=== PATIENT | female | born 1945 | race Caucasian/White ===

== ENCOUNTER → 2019-09-29 | Outpatient (CLI) | payer MEDICARE, OTHER | END | disposition home or self-care (01) ==

== ENCOUNTER → 2019-10-10 | Outpatient (CLI) | payer MEDICARE, OTHER ==
--- NOTE | 2019-10-10 11:22 | US ---
EXAMINATION TYPE: US venous doppler duplex LE DATE OF EXAM: 10/10/2019 11:10 AM COMPARISON: NONE CLINICAL HISTORY: R22.41 Swelling rt lower limb,R22.42 Swelling of L. Edema and pain bilateral legs f or 2 days SIDE PERFORMED: bilateral TECHNIQUE: The lower extremity deep venous system is examined utilizing real time linear array sonog mayte with graded compression, doppler sonography and color-flow sonography. VESSELS IMAGED: External Iliac Vein (EIV) Common Femoral Vein Deep Femoral Vein Greater Saphenous Vein * Femoral Vein Popliteal Vein Small Saphenous Vein * Proximal Calf Veins (* superficial vessels) Grayscale, color doppler, spectral doppler imaging performed of the deep veins of the lower extremiti es. There is normal flow, compressibility, vascular waveforms. Right Leg: No evidence of DVT Left Leg: No evidence of DVT IMPRESSION: No sonographic evidence of deep venous thrombosis within either of the visualized bilate ral lower extremities.
== END | disposition home or self-care (01) ==
LOC: RADUSWWP 10:36
PROVIDERS: ATTEND Internal Medicine Hematology & Oncology
DX: R22.43 Localized swelling, mass and lump, lower limb, bilateral (principal); Z88.1 Allergy status to other antibiotic agents; Z91.048 Other nonmedicinal substance allergy status
CPT/HCPCS: 93970

== ENCOUNTER 2021-06-09 17:23 | Inpatient (IN) | payer MEDICARE, OTHER ==
--- NOTE | 2021-06-09 17:46 | ED ---
Lower Extremity Injury HPI - General Chief Complaint: Extremity Injury, Lower Stated Complaint: Fall-R knee pain Time Seen by Provider: 06/09/21 17:40 Source: patient, EMS Mode of arrival: EMS Limitations: no limitations - History of Present Illness Initial Comments: Dinorah is a pleasant 75yo F since the emergency department today via ambulance for evaluation of right leg pain. Patient was standing a glass door when she turned to walk she turned funny falling to the ground hurting her right knee. She has pain in her right knee and newell. No other injuries. Did not strike her head. - Related Data Home Medications Medication Instructions Recorded Confirmed Loratadine-Pseudoeph 10-240 mg 1 tab PO DAILY 01/01/16 06/09/21 [Claritin-D 24 Hour] Acalabrutinib [Calquence] 100 mg PO BID 06/09/21 06/09/21 Eriberto/D3/Mag11/Zinc/Matcher Offbearer/Rigo/Bor 1 tab PO DAILY 06/09/21 06/09/21 [Caltrate 600+D Plus Tablet] Meclizine [Antivert] 25 mg PO DAILY 06/09/21 06/09/21 Meclizine [Antivert] 25 mg PO DAILY PRN 06/09/21 06/09/21 Super Vitamin D 1 tab PO DAILY 06/09/21 06/09/21 Vitamin E (Dl,Tocopheryl Acet) 400 unit PO DAILY 06/09/21 06/09/21 [Vitamin E (400 Iu = 180 mg)] Allergies Allergy/AdvReac Type Severity Reaction Status Date / Time adhesive tape Allergy Rash/Hives Verified 06/09/21 20:08 ointments Allergy Rash/Hives Uncoded 06/09/21 17:34 Review of Systems ROS Statement: Those systems with pertinent positive or pertinent negative responses have been documented in the HPI. ROS Other: All systems not noted in ROS Statement are negative. Past Medical History Past Medical History: Cancer, Osteoarthritis (OA) Additional Past Medical History / Comment(s): meniers, breast cancer, CLL History of Any Multi-Drug Resistant Organisms: None Reported Past Surgical History: Breast Surgery, Hysterectomy, Orthopedic Surgery Additional Past Surgical History / Comment(s): breast biopsy, bladder biopsy, tibia l surgery with devora placement, l great toe tip removed Past Anesthesia/Blood Transfusion Reactions: No Reported Reaction Past Psychological History: Anxiety, Depression Past Alcohol Use History: None Reported, Rare Past Drug Use History: None Reported - Past Family History Mother Family Medical History: Cancer Additional Family Medical History / Comment(s): pancreatic Father Family Medical History: Cancer, Myocardial Infarction ([place]) Additional Family Medical History / Comment(s): stomach Sister(s) Family Medical History: Cancer Additional Family Medical History / Comment(s): colon General Exam - General Exam Comments Initial Comments: Physical Exam GENERAL: Patient is well-developed and well-nourished. Patient is nontoxic and well-hydrated Patient appears uncomfortable HENT: Normocephalic, Atraumatic. EYES: PERRL, EOMI PULMONARY: Unlabored respirations. CARDIOVASCULAR: RRR Warm and well perfused extremities ABDOMEN: Non-distended SKIN: No rashes or bruising : Deferred NEUROLOGIC: Alert and oriented Normal speech MUSCULOSKELETAL: Decreased ROM right knee secondary to pain, effusion, swelling noted PSYCHIATRIC: No SI/HI Limitations: no limitations Course Vital Signs 06/09/21 17:30 Temperature 98.1 F Pulse Rate 65 Respiratory 16 Rate Blood Pressure 117/43 O2 Sat by Pulse 96 Oximetry Medical Decision Making - Medical Decision Making Patient was seen and evaluated, history is obtained from the patient x-rays were obtained x-rays confirm a tibial plateau fracture, computed tomography scan was obtained confirms a tibial plateau fracture non-displaced but slightly depressed these results were discussed with orthopedic surgeon Dr. Ortiz who recommends admission nothing by mouth at midnight. Patient agreeable. Medicine was consulted for medical management. The patient had declined any pain medication s, I advised her she will up when necessary medications needed but she will be nothing by mouth at midnight. Disposition Clinical Impression: Tibial plateau fracture, right Disposition: ADMITTED IP TO THIS HOSP Condition: Stable Is patient prescribed a controlled substance at d/c from ED?: No
--- NOTE | 2021-06-09 18:03 | XR ---
EXAMINATION TYPE: XR knee complete RT, XR tibia fibula RT DATE OF EXAM: 06/09/2021 COMPARISON: NONE HISTORY: 75 years Female. STUDY INDICATION GIVEN: fall . TECHNIQUE: AP, oblique and lateral x-rays of the right knee. AP and lateral x-rays of the right tibia and fibula. IMPRESSION: There are linear lucencies within the proximal tibia which appear to extend to the tibial plateau con cerning for nondisplaced proximal tibial fracture. There is tricompartmental osteoarthrosis and chondrocalcinosis of the knee joint. There is slight irregularity involving the proximal fibula which may be related to remote trauma, no acute fibular fracture appreciated. There is mild soft tissue swelling along the lateral and anterior aspect of the knee and moderate kne e joint effusion. Ossification at the insertion of the quadriceps tendon suggests enthesophyte changes. Slight irregula rity of the distal quadriceps is noted therefore quadriceps tendon injury cannot be entirely excluded . Vascular calcifications are seen posteriorly.
--- NOTE | 2021-06-09 19:58 | CT ---
EXAMINATION TYPE: CT lower extremity RT wo con DATE OF EXAM: 06/09/2021 COMPARISON: Right knee, tibia-fibula radiographs from the same day HISTORY: RT tibial plateau fracture from fall TECHNIQUE: CT scan of the right lower extremity without contrast CT DLP: 118.4 mGycm Automated exposure control for dose reduction was used. FINDINGS: There is diffuse bony demineralization. There is an acute comminuted nondisplaced fracture of the proximal tibia extending into the tibial fe moral joint. Fracture line extends in an oblique fashion from the lateral aspect of the proximal tibi al diaphysis superiorly into the region of the tibial spine. Another fracture line extends in a horiz ontal oblique superior fashion to the middle tibial plateau. There is an apparent slight depression f racture deformity involving the lateral tibial plateau without a fracture line. There are few osseous fragments in the region of the tibial spine which may represent displaced/avulsed osseous fragments. There is lipohemarthrosis which is consistent with above described fracture. There is tricompartmental narrowing of the joint spaces bony spurring. Chondrocalcinosis is also seen with demonstration of calcifications in the region of the menisci. There is also bony spurring at th e proximal tibiofibular joint. Tiny osseous fragments in the posterior knee joint which may represent loose bodies. The femur itself and the patella are acutely intact. The quadriceps tendon and patellar tendons are grossly maintained with demonstration of enthesophyte changes at the insertion of the quadriceps. There are vascular calcifications posterior aspect of the included lower extremity. IMPRESSION: ACUTE COMMINUTED INTRA-ARTICULAR FRACTURES OF THE PROXIMAL TIBIA DESCRIBED IN BODY OF REPORT. LIPOHEMARTHROSIS CONSISTENT WITH DESCRIBED FRACTURE. TRICOMPARTMENTAL OSTEOARTHROSIS.
[2021-06-09] MEDS ORDERED: IBUPROFEN 400 MG TAB PO PRN (20:50)
[2021-06-09] MEDS ORDERED: NALOXONE 0.4 MG/ML 1 ML VIAL IV PRN (20:50)
[2021-06-09 21:59] LABS: Basophils % (A) 0 %; Eosinophils # (A) 0.1 k/uL (0-0.7); Eosinophils % (A) 0 %; HCT 42.2 % (34.0-46.0); Lymphocytes # (A) 1.6 k/uL (1.0-4.8); Lymphocytes % (A) 11 %; MCHC 33.1 g/dL (31.0-37.0); MCV 96.9 fL (80.0-100.0); Mean Platelet Volume 7.2; Monocytes # (A) 0.7 k/uL (0-1.0); Monocytes % (A) 5 %; Neutrophils # (A) 11.8 k/uL (1.3-7.7); Neutrophils % (A) 80 %; Platelet Count 239 k/uL (150-450); RBC 4.36 m/uL (3.80-5.40); RDW 12.2 % (11.5-15.5); WBC 14.7 k/uL (3.8-10.6)
[2021-06-09 22:05] LABS: ALT 15 U/L (4-34); AST 27 U/L (14-36); African American GFR (CKD) >90 (>60 ml/min/1.73 sqM); Albumin 3.7 g/dL (3.5-5.0); Albumin/Globulin Ratio 1.9; Alkaline Phosphatase 57 U/L (38-126); Anion Gap 4 mmol/L; Blood Urea Nitrogen 15 mg/dL (7-17); Calcium 9.5 mg/dL (8.4-10.2); Carbon Dioxide 26 mmol/L (22-30); Chloride 106 mmol/L (98-107); Glucose 107 mg/dL (74-99); Non-African American GFR(CKD) >90 (>60 ml/min/1.73 sqM); Sodium 136 mmol/L (137-145); Total Bilirubin 0.4 mg/dL (0.2-1.3); Total Protein 5.7 g/dL (6.3-8.2)
[2021-06-09 22:11] LABS: Potassium 4.3 mmol/L (3.5-5.1)
[2021-06-09] MEDS: SODIUM CHLORIDE 0.9% 1,000 ML IV SCH ×2 (23:13→23:51)
[2021-06-09] MEDS: HYDROmorphone 0.5 MG/0.5 ML SYRINGE IVP PRN (23:51)
[2021-06-10] MEDS: HYDROmorphone 0.5 MG/0.5 ML SYRINGE IVP PRN ×4 (02:47→19:30)
[2021-06-10] MEDS ORDERED: HYDROcodone/APAP 5-325MG 1 EACH TAB PO PRN (09:23)
[2021-06-10] MEDS ORDERED: Acetaminophen-Codeine 300-30mg TAB PO PRN (09:23)
--- NOTE | 2021-06-10 10:44 | P.HPOR ---
History of Present Illness H&P Date: 06/10/21 Chief Complaint: Right knee pain The patient is a 75-year-old female with a history of breast cancer and CLL who presented to the emergency department yesterday after a fall at home. She states that she twisted her right leg and fell. The patient states that she was trying to prevent injuring her left leg which had surgery 9 years ago at [facility]. She had immediate right knee pain and swelling and presented to the emergency department via EMS. X-rays revealed a minimally displaced tibial plateau fracture and she was admitted to the hospital for pain control and f ther orthopedic evaluation. She states that she does live at home alone and does not use assistive devices at this time. She has used a cane in the past when she's had low back issues but does not use a cane at this time. The patient states that the IV pain medication is helping her pain but does make her very sleepy.she states that she is awaiting [facility] to call her back to schedule a mastectomy Review of Systems Constitutional: Denies chills, Denies fatigue, Denies fever Cardiovascular: Denies chest pain, Denies shortness of breath Respiratory: Denies cough Musculoskeletal: right: knee pain, knee stiffness, knee swelling Past Medical History Past Medical History: Cancer, Osteoarthritis (OA) Additional Past Medical History / Comment(s): meniers, breast cancer, CLL History of Any Multi-Drug Resistant Organisms: None Reported Past Surgical History: Breast Surgery, Hysterectomy, Orthopedic Surgery Additional Past Surgical History / Comment(s): breast biopsy, bladder biopsy, tibia l surgery with devora placement, l great toe tip removed Past Anesthesia/Blood Transfusion Reactions: No Reported Reaction Past Psychological History: Anxiety, Depression Additional Psychological History / Comment(s): takes 1/2 tablet as needed Smoking Status: Former smoker Past Alcohol Use History: None Reported, Rare Past Drug Use History: None Reported - Past Family History Mother Family Medical History: Cancer Additional Family Medical History / Comment(s): pancreatic Father Family Medical History: Cancer, Myocardial Infarction ([place]) Additional Family Medical History / Comment(s): stomach Sister(s) Family Medical History: Cancer Additional Family Medical History / Comment(s): colon Medications and Allergies Home Medications Medication Instructions Recorded Confirmed Type Loratadine-Pseudoeph 10-240 mg 1 tab PO DAILY 01/01/16 06/09/21 History [Claritin-D 24 Hour] Acalabrutinib [Calquence] 100 mg PO BID 06/09/21 06/09/21 History Eriberto/D3/Mag11/Zinc/Solid Waste Manager/Rigo/Bor 1 tab PO DAILY 06/09/21 06/09/21 History [Caltrate 600+D Plus Tablet] Meclizine [Antivert] 25 mg PO DAILY 06/09/21 06/09/21 History Meclizine [Antivert] 25 mg PO DAILY PRN 06/09/21 06/09/21 History Super Vitamin D 1 tab PO DAILY 06/09/21 06/09/21 History Vitamin E (Dl,Tocopheryl Acet) 400 unit PO DAILY 06/09/21 06/09/21 History [Vitamin E (400 Iu = 180 mg)] Allergies Allergy/AdvReac Type Severity Reaction Status Date / Time adhesive tape Allergy Rash/Hives Verified 06/09/21 20:08 ointments Allergy Rash/Hives Uncoded 06/09/21 17:34 Physical Examination The patient is a 75 y/o female in no acute distress. She is alert and oriented x3. the patient's head is normocephalic atraumatic. No pain upon palpation of the cervical spine and no step-offs noted. Bilateral upper extremities are without deformity or pain upon range of motion. Exam of the left lower extremity reveals no obvious deformity or pain. Exam of the right lower extremity reveals a knee immobilizer in place. There is pain upon palpation to the proximal tibia. Calf is soft and nontender. Patient is able to move her toes and foot with minimal pain in the leg. Neurological and circulatory status is intact. Results - Labs Labs: Abnormal Lab Results - Last 24 Hours (Table) 06/09/21 06/09/21 Range/Units 21:45 21:45 WBC 14.7 H (3.8-10.6) k/uL Neutrophils # 11.8 H (1.3-7.7) k/uL Sodium 136 L (137-145) mmol/L Creatinine 0.50 L (0.52-1.04) mg/dL Glucose 107 H (74-99) mg/dL Total Protein 5.7 L (6.3-8.2) g/dL H & H 06/09/21 Range/Units 21:45 Hgb 14.0 (11.4-16.0) gm/dL Hct 42.2 (34.0-46.0) % Result Diagrams: 06/09/21 21:45 06/09/21 21:45 - Diagnostic results Knee CT: image reviewed (CT of the right knee reveals a minimally displaced proximal tibia fracture that extends into the joint. Tricompartmental osteoarthritis noted to the knee. ) Assessment and Plan (1) Right knee pain Current Visit: Yes Status: Acute Code(s): M25.561 - PAIN IN RIGHT KNEE SNOMED Code(s): 6794010301 (2) Tibial plateau fracture, right Current Visit: Yes Status: Acute Code(s): S82.141A - DISPLACED BICONDYLAR FRACTURE OF RIGHT TIBIA, INIT SNOMED Code(s): 734923614 (3) CLL (chronic lymphocytic leukemia) Current Visit: No Status: Acute Code(s): C91.10 - CHRONIC LYMPHOCYTIC LEUK OF B-CELL TYPE NOT ACHIEVE REMIS SNOMED Code(s): 43396350 (4) Breast cancer Current Visit: Yes Status: Acute Code(s): C50.919 - MALIGNANT NEOPLASM OF UNSP SITE OF UNSPECIFIED FEMALE BREAST SNOMED Code(s): 383342455 Plan: The clinical, x-ray, and CT findings were discussed with the patient. The case was discussed at length with Dr. Ortiz. We are recommending non-operative darnell tment to the right proximal tibia fracture. She will be nonweightbearing for 4 weeks with a hinged knee brace, locked at 0-90 degrees. It was discussed in detail that if she does walk on the leg, the fracture will likely move and either the leg would be crooked or would require surgery at that time. She will have close outpatient follow up with us in the office. She will likely need a walker. PT and OT will be ordered for evaluation. The patient would like to go home upon discharge but she may require skilled rehab if she does not do well with PT/OT since she does live alone. A script for the knee brace was placed in the chart and case management consult was ordered to obtain the brace and for discharge planning. We will see how the patient does with PT/OT today. PO pain medication has been ordered. We will transfer attending to internal medicine and will continue to follow the patient closely.
[2021-06-11] MEDS: HYDROmorphone 0.5 MG/0.5 ML SYRINGE IVP PRN ×2 (00:40→05:04)
[2021-06-11] MEDS: SODIUM CHLORIDE 0.9% 1,000 ML IV SCH ×2 (01:59→15:33)
[2021-06-11] MEDS: ACETAMINOPHEN TAB 325 MG TAB PO PRN (05:04)
--- NOTE | 2021-06-11 09:19 | P.PN ---
<ChrislauraNadine Maru - Last Filed: 06/11/21 09:19> Subjective Progress Note Date: 06/11/21 Principal diagnosis: Right tibial plateau fracture The patient is a 75-year-old female with a history of breast cancer and CLL who presented to the emergency department yesterday after a fall at home. She states that she twisted her right leg and fell. The patient states that she was trying to prevent injuring her left leg which had surgery 9 years ago at [facility]. She had immediate right knee pain and swelling and presented to the emergency department via EMS. X-rays revealed a minimally displaced tibial plateau fracture and she was admitted to the hospital for pain control and further orthopedic evaluation. She states that she does live at home alone and does not use assistive devices at this time. She has used a cane in the past when she's had low back issues but does not use a cane at this time. The patient states that the IV pain medication is helping her pain but does make her very sleepy.she states that she is awaiting [facility] to call her back to schedule a mastectomy. 06/11/2021: The patient states the knee is still painful. The knee brace is in place. She is ambulating to the bathroom with a walker and one assist. No new complaints today. Objective - Vital Signs Vital signs: Vital Signs Temp 100.3 F H 06/11/21 04:45 Pulse 81 06/11/21 04:45 Resp 20 06/11/21 04:45 BP 144/61 06/11/21 04:45 Pulse Ox 91 L 06/11/21 04:45 Intake & Output 06/10/21 06/11/21 06/11/21 18:59 06:59 18:59 Intake Total 100 Balance 100 Intake: Oral 100 Other: Voiding Method Bedside Commode Bedside Commode Bedpan # Voids 2 2 - Exam The patient is a 75 y/o female in no acute distress. She is alert and oriented x3. the patient's head is normocephalic atraumatic. No pain upon palpation of the cervical spine and no step-offs noted. Bilateral upper extremities are without deformity or pain upon range of motion. Exam of the left lower extremity reveals no obvious deformity or pain. Exam of the right lower extremity reveals a hinged knee brace in place. There is pain upon palpation to the proximal tibia. Moderate swelling to the knee. Calf is soft and nontender. Patient is able to move her toes and foot with minimal pain in the leg. Neurological and circulatory status is intact. - Labs CBC & Chem 7: 06/09/21 21:45 06/09/21 21:45 Assessment and Plan (1) Right knee pain Current Visit: Yes Status: Acute Code(s): M25.561 - PAIN IN RIGHT KNEE SN OMED Code(s): 0186432832 (2) Tibial plateau fracture, right Current Visit: Yes Status: Acute Code(s): S82.141A - DISPLACED BICONDYLAR FRACTURE OF RIGHT TIBIA, INIT SNOMED Code(s): 961693341 (3) CLL (chronic lymphocytic leukemia) Current Visit: No Status: Acute Code(s): C91.10 - CHRONIC LYMPHOCYTIC LEUK OF B-CELL TYPE NOT ACHIEVE REMIS SNOMED Code(s): 96538280 (4) Breast cancer Current Visit: Yes Status: Acute Code(s): C50.919 - MALIGNANT NEOPLASM OF UNSP SITE OF UNSPECIFIED FEMALE BREAST SNOMED Code(s): 613324781 Plan: The clinical, x-ray, and CT findings were discussed with the patient. The case was discussed at length with Dr. Ortiz. We are recommending non-operative treatme nt to the right proximal tibia fracture. She will be nonweightbearing for 4 weeks with a hinged knee brace, locked at 0-90 degrees. It was discussed in detail that if she does walk on the leg, the fracture will likely move and either the leg would be crooked or would require surgery at that time. She will have close outpatient follow up with us in the office. Continue PT and OT. The patient is planning on skilled rehab now. Continue pain control. We will sign off at this time and she will follow up with Dr. Ortiz in the office in about 2 weeks. <Minnie Ortiz - Last Filed: 06/12/21 07:34> Objective - Vital Signs Vital signs: Vital Signs Temp 99.3 F 06/12/21 05:00 Pulse 74 06/12/21 05:00 Resp 20 06/12/21 05:00 BP 105/52 06/12/21 06:12 Pulse Ox 91 L 06/12/21 05:00 Intake & Output 06/11/21 06/12/21 06/12/21 18:59 06:59 18:59 Intake Total 540 300 Balance 540 300 Intake: Oral 540 300 Other: Voiding Method Bedside Commode Bedpan # Voids 2 2 - Labs CBC & Chem 7: 06/12/21 05:14 06/11/21 11:54 Labs: Abnormal Lab Results - Last 24 Hours (Table) 06/11/21 06/11/21 06/12/21 Range/Units 11:54 11:54 05:14 WBC 10.8 H 11.9 H (3.8-10.6) k/uL RBC 3.78 L (3.80-5.40) m/uL Neutrophils # 8.9 H 10.5 H (1.3-7.7) k/uL Lymphocytes # 0.9 L 0.5 L (1.0-4.8) k/uL Sodium 132 L (137-145) mmol/L Potassium 3.1 L (3.5-5.1) mmol/L Chloride 108 H (98-107) mmol/L Carbon Dioxide 21 L (22-30) mmol/L Creatinine 0.39 L (0.52-1.04) mg/dL Glucose 107 H (74-99) mg/dL Calcium 7.3 L (8.4-10.2) mg/dL Assessment and Plan Plan: Agree with the above plan. The fracture is thankfully nondisplaced and we will attempt closed treatment. She will be nonweightbearing with a hinged knee brace for most likely 6-8 weeks. She will likely need to go to a detention for assistance. We'll see her in the office in two weeks for repeat XR's.
--- NOTE | 2021-06-11 11:30 | P.CONS ---
History of Present Illness - Reason for Consult Consult date: 06/10/21 Medical management - Chief Complaint Fall with right knee pain - History of Present Illness 75yo F since the emergency department today via ambulance for evaluation of right leg pain. Patient was standing a glass door when she turned to walk she turned funny falling to the ground hurting her right knee. She has pain in her right knee and newell. No other injuries. Did not strike her head. Workup in ED; x-rays confirm a tibial plateau fracture, computed tomography scan was obtained confirms a tibial plateau fracture non-displaced but slightly depressed Blood work reveals to PVC 14.7, hemoglobin of 14 and hematocrit 42.2 and platelet count of 239, sodium 136, potassium 4.3, BUN/creatinine of 50/2.5 Patient is admitted for further orthopedic evaluation Review of Systems REVIEW OF SYSTEMS: CONSTITUTIONAL: No fever, no malaise, no fatigue. HEENT: No recent visual problems or hearing problems. Denied any sore throat. CARDIOVASCULAR: No chest pain, orthopnea, PND, no palpitations, no syncope. PULMONARY: No shortness of breath, no cough, no hemoptysis. GASTROINTESTINAL: No diarrhea, no nausea, no vomiting, no abdominal pain. NEUROLOGICAL: No headaches, no weakness, no numbness. HEMATOLOGICAL: Denies any bleeding or petechiae. GENITOURINARY: Denies any burning micturition, frequency, or urgency. MUSCULOSKELETAL/RHEUMATOLOGICAL: Denies any joint pain, swelling, or any muscle pain. ENDOCRINE: Denies any polyuria or polydipsia. The rest of the 14-point review of systems is negative. Past Medical History Past Medical History: Cancer, Osteoarthritis (OA) Additional Past Medical History / Comment(s): meniers, breast cancer, CLL History of Any Multi-Drug Resistant Organisms: None Reported Past Surgical History: Breast Surgery, Hysterectomy, Orthopedic Surgery Additional Past Surgical History / Comment(s): breast biopsy, bladder biopsy, tibia l surgery with devora placement, l great toe tip removed Past Anesthesia/Blood Transfusion Reactions: No Reported Reaction Past Psychological History: Anxiety, Depression Additional Psychological History / Comment(s): takes 1/2 tablet as needed Smoking Status: Former smoker Past Alcohol Use History: None Reported, Rare Past Drug Use History: None Reported - Past Family History Mother Family Medical History: Cancer Additional Family Medical History / Comment(s): pancreatic Father Family Medical History: Cancer, Myocardial Infarction ([place]) Additional Family Medical History / Comment(s): stomach Sister(s) Family Medical History: Cancer Additional Family Medical History / Comment(s): colon Medications and Allergies Home Medications Medication Instructions Recorded Confirmed Type Loratadine-Pseudoeph 10-240 mg 1 tab PO DAILY 01/01/16 06/09/21 History [Claritin-D 24 Hour] Acalabrutinib [Calquence] 100 mg PO BID 06/09/21 06/09/21 History Eriberto/D3/Mag11/Zinc/[employer]/Rigo/Bor 1 tab PO DAILY 06/09/21 06/09/21 History [Caltrate 600+D Plus Tablet] Meclizine [Antivert] 25 mg PO DAILY 06/09/21 06/09/21 History Meclizine [Antivert] 25 mg PO DAILY PRN 06/09/21 06/09/21 History Super Vitamin D 1 tab PO DAILY 06/09/21 06/09/21 History Vitamin E (Dl,Tocopheryl Acet) 400 unit PO DAILY 06/09/21 06/09/21 History [Vitamin E (400 Iu = 180 mg)] HYDROcodone/APAP 5-325MG [[place] 5] 1 each PO Q4-6H PRN #30 tab 06/11/21 Rx Allergies Allergy/AdvReac Type Severity Reaction Status Date / Time adhesive tape Allergy Rash/Hives Verified 06/09/21 20:08 ointments Allergy Rash/Hives Uncoded 06/09/21 17:34 Physical Exam Vitals: Vital Signs Temp Pulse Pulse Resp BP BP Pulse Ox 06/10/21 02:00 98.9 F 66 16 122/56 90 L 06/09/21 23:40 98.7 F 66 16 167/61 96 06/09/21 23:10 73 18 140/63 95 06/09/21 17:30 98.1 F 65 16 117/43 96 Intake and Output 06/09/21 06/10/21 06/10/21 22:59 06:59 14:59 Other: # Voids 2 Weight 53.977 kg PHYSICAL EXAMINATION: GENERAL: The patient is alert and oriented x3, not in any acute distress. Well developed, well nourished. HEENT: Pupils are round and equally reacting to light. EOMI. No scleral icterus. No conjunctival pallor. Normocephalic, atraumatic. No pharyngeal erythema. No thyromegaly. CARDIOVASCULAR: S1 and S2 present. No murmurs, rubs, or gallops. PULMONARY: Chest is clear to auscultation, no wheezing or crackles. ABDOMEN: Soft, nontender, nondistended, normoactive bowel sounds. No palpable organomegaly. MUSCULOSKELETAL: No joint swelling or deformity. EXTREMITIES: No cyanosis, clubbing, or pedal edema. NEUROLOGICAL: Gross neurological examination did not reveal any focal deficits. SKIN: No rashes. Results CBC & Chem 7: 06/09/21 21:45 06/09/21 21:45 Labs: Abnormal Lab Results - Last 24 Hours (Table) 06/09/21 06/09/21 Range/Units 21:45 21:45 WBC 14.7 H (3.8-10.6) k/uL Neutrophils # 11.8 H (1.3-7.7) k/uL Sodium 136 L (137-145) mmol/L Creatinine 0.50 L (0.52-1.04) mg/dL Glucose 107 H (74-99) mg/dL Total Protein 5.7 L (6.3-8.2) g/dL Assessment and Plan Assessment: 1. Fall with right knee pain; tibial plateau fracture - Patient has been evaluated by orthopedic surgery and recommending operative treatment to the right proximal tibial fracture; patient will be nonweightbearing for 4 weeks with a hinged knee brace with close outpatient monitoring - PT/OT evaluation as recommended and pending 2. Osteoarthritis; patient is currently on [place] and Dilaudid 3. Chronic lymphocytic leukemia 4. Breast cancer; patient awaits callback from [facility] as scheduled for mastectomy DVT prophylaxis; SCDs CODE STATUS; full code
[2021-06-11] MEDS ORDERED: MECLIZINE 25 MG TAB PO PRN (11:31)
[2021-06-11 12:15] LABS: Basophils % (A) 0 %; Eosinophils # (A) 0.2 k/uL (0-0.7); Eosinophils % (A) 1 %; HCT 36.1 % (34.0-46.0); HGB 12.3 gm/dL (11.4-16.0); Lymphocytes # (A) 0.9 k/uL (1.0-4.8); Lymphocytes % (A) 8 %; MCH 32.5 pg (25.0-35.0); MCHC 34.1 g/dL (31.0-37.0); MCV 95.4 fL (80.0-100.0); Mean Platelet Volume 7.7; Monocytes # (A) 0.7 k/uL (0-1.0); Monocytes % (A) 6 %; Neutrophils # (A) 8.9 k/uL (1.3-7.7); Neutrophils % (A) 83 %; Platelet Count 172 k/uL (150-450); RBC 3.78 m/uL (3.80-5.40); RDW 12.2 % (11.5-15.5); WBC 10.8 k/uL (3.8-10.6)
[2021-06-11 12:24] LABS: African American GFR (CKD) >90 (>60 ml/min/1.73 sqM); Anion Gap 3 mmol/L; Blood Urea Nitrogen 10 mg/dL (7-17); Calcium 7.3 mg/dL (8.4-10.2); Carbon Dioxide 21 mmol/L (22-30); Chloride 108 mmol/L (98-107); Glucose 107 mg/dL (74-99); Non-African American GFR(CKD) >90 (>60 ml/min/1.73 sqM); Potassium 3.1 mmol/L (3.5-5.1); Sodium 132 mmol/L (137-145)
[2021-06-11] MEDS: traMADol 50 MG TAB PO SCH ×2 (15:33→21:33)
[2021-06-11] MEDS: diphenhydrAMINE 50 MG/ML 1 ML VIAL IVP PRN ×2 (15:34→21:33)
[2021-06-11] MEDS: ACALABRUTINIB 100 MG PO SCH (21:53)
[2021-06-12] MEDS: SODIUM CHLORIDE 0.9% 1,000 ML IV SCH ×3 (04:30→21:05)
[2021-06-12 05:49] LABS: Basophils % (A) 0 %; Eosinophils # (A) 0.3 k/uL (0-0.7); Eosinophils % (A) 3 %; HCT 39.3 % (34.0-46.0); HGB 13.4 gm/dL (11.4-16.0); Lymphocytes # (A) 0.5 k/uL (1.0-4.8); Lymphocytes % (A) 4 %; MCH 32.6 pg (25.0-35.0); MCV 95.7 fL (80.0-100.0); Mean Platelet Volume 7.7; Monocytes # (A) 0.5 k/uL (0-1.0); Monocytes % (A) 4 %; Neutrophils # (A) 10.5 k/uL (1.3-7.7); Neutrophils % (A) 88 %; Platelet Count 202 k/uL (150-450); RBC 4.11 m/uL (3.80-5.40); RDW 12.2 % (11.5-15.5); WBC 11.9 k/uL (3.8-10.6)
[2021-06-12] MEDS: traMADol 50 MG TAB PO SCH ×3 (09:46→20:17)
[2021-06-12] MEDS: MECLIZINE 25 MG TAB PO SCH (09:47)
[2021-06-12] MEDS: VITAMIN E (DL,TOCOPHERYL ACET) 400 UNIT (180 MG) CAP PO SCH (09:48)
[2021-06-12] MEDS: LORATADINE-PSEUDOEPH 5-120 MG 1 EACH TAB.ER.12H PO SCH ×2 (09:48→21:04)
[2021-06-12] MEDS: ACALABRUTINIB 100 MG PO SCH ×2 (09:49→20:18)
[2021-06-12] MEDS: diphenhydrAMINE 50 MG/ML 1 ML VIAL IVP PRN (09:52)
[2021-06-12] MEDS: ACETAMINOPHEN TAB 325 MG TAB PO PRN (09:52)
[2021-06-12 10:35] LABS: African American GFR (CKD) 103.1 (60.0-200.0); Anion Gap 11.5 mmol/L (10.00-18.00); BUN/Creat Ratio 17.34 Ratio (12.00-20.00); Blood Urea Nitrogen 10.7 mg/dL (9.0-27.0); Calcium 8.2 mg/dL (8.7-10.3); Carbon Dioxide 21.1 mmol/L (20.0-27.5); Potassium 3.6 mmol/L (3.5-5.5)
--- NOTE | 2021-06-12 20:14 | P.PN ---
Subjective Progress Note Date: 06/11/21 Principal diagnosis: Tibial plateau fracture 75yo F since the emergency department today via ambulance for evaluation of right leg pain. Patient was standing a glass door when she turned to walk she turned funny falling to the ground hurting her right knee. She has pain in her right knee and newell. No other injuries. Did not strike her head. Workup in ED; x-rays confirm a tibial plateau fracture, computed tomography scan was obtained confirms a tibial plateau fracture non-displaced but slightly depressed Blood work reveals to PVC 14.7, hemoglobin of 14 and hematocrit 42.2 and platelet count of 239, sodium 136, potassium 4.3, BUN/creatinine of 50/2.5 Patient is admitted for further orthopedic evaluation Objective - Vital Signs Vital signs: Vital Signs Temp 99.3 F 06/11/21 07:45 Pulse 81 06/11/21 04:45 Resp 20 06/11/21 04:45 BP 144/61 06/11/21 04:45 Pulse Ox 91 L 06/11/21 04:45 Intake & Output 06/10/21 06/11/21 06/11/21 18:59 06:59 18:59 Intake Total 100 Balance 100 Intake: Oral 100 Other: Voiding Method Bedside Commode Bedside Commode Bedpan # Voids 2 2 - Exam GENERAL: The patient is alert and oriented x3, not in any acute distress. Well developed, well nourished. HEENT: Pupils are round and equally reacting to light. EOMI. No scleral icterus. No conjunctival pallor. Normocephalic, atraumatic. No pharyngeal erythema. No thyromegaly. CARDIOVASCULAR: S1 and S2 present. No murmurs, rubs, or gallops. PULMONARY: Chest is clear to auscultation, no wheezing or crackles. ABDOMEN: Soft, nontender, nondistended, normoactive bowel sounds. No palpable organomegaly. MUSCULOSKELETAL: No joint swelling or deformity. EXTREMITIES: No cyanosis, clubbing, or pedal edema. NEUROLOGICAL: Gross neurological examination did not reveal any focal deficits. SKIN: No rashes. - Labs CBC & Chem 7: 06/12/21 05:14 06/12/21 05:14 Assessment and Plan Assessment: 1. Fall with right knee pain; tibial plateau fracture - Patient has been evaluated by orthopedic surgery and recommending operative treatment to the right proximal tibial fracture; patient will be nonweightbearing for 4 weeks with a hinged knee brace with close outpatient monitoring - PT/OT evaluation as recommended and pending 2. Osteoarthritis; patient is currently on [place] and Dilaudid 3. Chronic lymphocytic leukemia 4. Breast cancer; patient awaits callback from [facility] as scheduled for mastectomy DVT prophylaxis; SCDs CODE STATUS; full code
--- NOTE | 2021-06-12 20:16 | P.PN ---
Subjective Progress Note Date: 06/12/21 Principal diagnosis: Tibial plateau fracture 75yo F since the emergency department today via ambulance for evaluation of right leg pain. Patient was standing a glass door when she turned to walk she turned funny falling to the ground hurting her right knee. She has pain in her right knee and newell. No other injuries. Did not strike her head. Workup in ED; x-rays confirm a tibial plateau fracture, computed tomography scan was obtained confirms a tibial plateau fracture non-displaced but slightly depressed Blood work reveals to 14.7, hemoglobin of 14 and hematocrit 42.2 and platelet count of 239, sodium 136, potassium 4.3, BUN/creatinine of 50/2.5 Patient is admitted for further orthopedic evaluation 06/12/2021 Patient is seen and evaluated sitting up in bedside chair; denies any specific complaints Vital signs are reviewed and stable with temperature 99.3, pulse 74, respiration 20 and blood pressure of 105/52 Labs are reviewed 39.3 and platelet count of 202, sodium 136, potassium 76, BUN of 10.7 with creatinine of 0.6 Patient does have knee brace in place; orthopedic surgery has signed off; patient has been evaluated by PT and is recommended skilled rehab Objective - Vital Signs Vital signs: Vital Signs Temp 98.4 F 06/12/21 11:52 Pulse 70 06/12/21 11:52 Resp 16 06/12/21 11:52 BP 106/44 06/12/21 11:52 Pulse Ox 92 L 06/12/21 11:52 Intake & Output 06/11/21 06/12/21 06/12/21 18:59 06:59 18:59 Intake Total 540 300 Balance 540 300 Intake: Oral 540 300 Other: Voiding Method Bedside Commode Bedside Commode Bedpan Bedpan # Voids 2 2 - Exam GENERAL: The patient is alert and oriented x3, not in any acute distress. Well developed, well nourished. HEENT: Pupils are round and equally reacting to light. EOMI. No scleral icterus. No conjunctival pallor. Normocephalic, atraumatic. No pharyngeal erythema. No thyromegaly. CARDIOVASCULAR: S1 and S2 present. No murmurs, rubs, or gallops. PULMONARY: Chest is clear to auscultation, no wheezing or crackles. ABDOMEN: Soft, nontender, nondistended, normoactive bowel sounds. No palpable organomegaly. MUSCULOSKELETAL: No joint swelling or deformity. EXTREMITIES: No cyanosis, clubbing, or pedal edema. NEUROLOGICAL: Gross neurological examination did not reveal any focal deficits. SKIN: No rashes. - Labs CBC & Chem 7: 06/12/21 05:14 06/12/21 05:14 Labs: Abnormal Lab Results - Last 24 Hours (Table) 06/12/21 06/12/21 Range/Units 05:14 05:14 WBC 11.9 H (3.8-10.6) k/uL Neutrophils # 10.5 H (1.3-7.7) k/uL Lymphocytes # 0.5 L (1.0-4.8) k/uL Glucose 164 H (70-110) mg/dL Calcium 8.2 L (8.7-10.3) mg/dL Assessment and Plan Assessment: 1. Fall with right knee pain; tibial plateau fracture - Patient has been evaluated by orthopedic surgery and recommending operative treatment to the right proximal tibial fracture; patient will be nonweightbearing for 4 weeks with a hinged knee brace with close outpatient monitoring - PT/OT evaluation as recommended and pending 2. Osteoarthritis; patient is currently on [place] and Dilaudid 3. Chronic lymphocytic leukemia 4. Breast cancer; patient awaits callback from [facility] as scheduled for mastectomy DVT prophylaxis; SCDs CODE STATUS; full code
[2021-06-13] MEDS: ACALABRUTINIB 100 MG PO SCH ×2 (08:06→20:49)
[2021-06-13] MEDS: MECLIZINE 25 MG TAB PO SCH (09:12)
[2021-06-13] MEDS: VITAMIN E (DL,TOCOPHERYL ACET) 400 UNIT (180 MG) CAP PO SCH (09:12)
[2021-06-13] MEDS: LORATADINE-PSEUDOEPH 5-120 MG 1 EACH TAB.ER.12H PO SCH ×2 (09:13→20:54)
[2021-06-13] MEDS: traMADol 50 MG TAB PO SCH ×3 (09:13→20:49)
[2021-06-13] MEDS ORDERED: methylPREDNISolone SOD SUCCI 125 MG/2 ML VIAL IV STA (13:09)
[2021-06-13] MEDS: methylPREDNISolone SOD SUCCI 125 MG/2 ML VIAL IV SCH (16:59)
[2021-06-13] MEDS: SODIUM CHLORIDE 0.9% 1,000 ML IV SCH (19:53)
[2021-06-14] MEDS: methylPREDNISolone SOD SUCCI 125 MG/2 ML VIAL IV SCH ×4 (00:22→17:27)
--- NOTE | 2021-06-14 00:41 | P.PN ---
Subjective Progress Note Date: 06/13/21 Tibial plateau fracture 75yo F since the emergency department today via ambulance for evaluation of righ t leg pain. Patient was standing a glass door when she turned to walk she turned funny falling to the ground hurting her right knee. She has pain in her right knee and newell. No other injuries. Did not strike her head. Workup in ED; x-rays confirm a tibial plateau fracture, computed tomography scan was obtained confirms a tibial plateau fracture non-displaced but slightly depressed Blood work reveals to 14.7, hemoglobin of 14 and hematocrit 42.2 and platelet count of 239, sodium 136, potassium 4.3, BUN/creatinine of 50/2.5 Patient is admitted for further orthopedic evaluation 06/12/2021 Patient is seen and evaluated sitting up in bedside chair; denies any specific complaints Vital signs are reviewed and stable with temperature 99.3, pulse 74, respiration 20 and blood pressure of 105/52 Labs are reviewed 39.3 and platelet count of 202, sodium 136, potassium 76, BUN of 10.7 with creatinine of 0.6 Patient does have knee brace in place; orthopedic surgery has signed off; patient has been evaluated by PT and is recommended skilled rehab 06/13/2021 Patient is seen in follow up today and was seen and evaluated by orthopedics and brace is noted on lower extremity. No surgical intervention planned for tibial plateau fracture. Patient is scheduled to go to [facility] for rehab and awaiting acceptance from facility. Patient is having extreme amount of itching with redness and hives noted all over upper and lower extremities as well as all over the back. Appears to be an allergic reaction. Patient did receive one dose of IV dilaudid and rash started shortly after. Patient has been refusing benadryl stating it doesn't help. Will consult ID for further recommendations and input. Review of systems: Constitutional: no reports of fatigue, no reports of fever, or chills, mildly anxious Cardiovascular: No reports of chest pain or palpitations Respiratory: No reports of shortness of breath : No reports of dysuria or retention Neurovascular: Reports generalized weakness SKin: reports generalized rash all over body and extreme itchiness. Active Medications Acetaminophen (Acetaminophen Tab 325 Mg Tab) 650 mg PO Q6HR PRN PRN Reason: Mild Pain or Fever > 100.5 Last Admin: 06/12/21 09:52 Dose: 650 mg Documented by: Acetaminophen/Codeine Phosphate (Acetaminophen-Codeine 300-30mg Tab) 1 each PO Q4HR PRN PRN Reason: Pain Scale 1 to 5 Diphenhydramine HCl (Diphenhydramine 50 Mg/Ml 1 Ml Vial) 25 mg IVP Q6HR PRN PRN Reason: Allergy Symptoms Last Admin: 06/12/21 09:52 Dose: 25 mg Documented by: Sodium Chloride (Saline 0.9%) 1,000 mls @ 75 mls/hr IV .[id number] [facility] Last Admin: 06/13/21 19:53 Dose: Not Given Documented by: Ibuprofen (Ibuprofen 400 Mg Tab) 400 mg PO Q6HR PRN PRN Reason: Mild Pain or Fever > 100.5 Loratadine/Pseudoephedrine Sulfate (Loratadine-Pseudoeph 5-120 Mg 1 Each Tab.Er.12h) 1 each PO BID [facility] Last Admin: 06/13/21 20:54 Dose: 1 each Documented by: Meclizine HCl (Meclizine 25 Mg Tab) 25 mg PO DAILY PRN PRN Reason: Vertigo Meclizine HCl (Meclizine 25 Mg Tab) 25 mg PO DAILY [facility] Last Admin: 06/13/21 09:12 Dose: 25 mg Documented by: Methylprednisolone Sodium Succinate (Methylprednisolone Sod Succi 125 Mg/2 Ml Vial) 60 mg IV Q6HR [facility] Last Admin: 06/13/21 16:59 Dose: Not Given Documented by: Naloxone HCl (Naloxone 0.4 Mg/Ml 1 Ml Vial) 0.2 mg IV Q2M PRN PRN Reason: Opioid Reversal Non-Formulary Medication (Acalabrutinib [Calquence]) 100 mg PO BID [facility] Last Admin: 06/13/21 20:49 Dose: Not Given Documented by: Tramadol HCl (Tramadol 50 Mg Tab) 50 mg PO TID [facility] Last Admin: 06/13/21 20:49 Dose: Not Given Documented by: Vitamin E (Vitamin E (Dl,Tocopheryl Acet) 400 Unit (180 Mg) Cap) 400 unit PO DAILY [facility] Last Admin: 06/13/21 09:12 Dose: 400 unit Documented by: Physical exam: GENERAL: The patient is alert and oriented x3, slightly anxious, itching all over. Well developed, well nourished. HEENT: Pupils are round and equally reacting to light. EOMI. No scleral icterus. No conjunctival pallor. Normocephalic, atraumatic. No pharyngeal erythema. No thyromegaly. CARDIOVASCULAR: S1 and S2 present. No murmurs, rubs, or gallops. PULMONARY: Chest is clear to auscultation, no wheezing or crackles. ABDOMEN: Soft, nontender, nondistended, normoactive bowel sounds. No palpable organomegaly. MUSCULOSKELETAL: No joint swelling or deformity. EXTREMITIES: No cyanosis, clubbing, or pedal edema. right leg in splint NEUROLOGICAL: Gross neurological examination did not reveal any focal deficits. diffusely weak SKIN: redness with hives and splotches noted on back, buttock, upper and lower extremities Assessment: -Fall with right knee pain; tibial plateau fracture, Patient has been evaluated by orthopedic surgery and recommending operative treatment to the right proximal tibial fracture; patient will be nonweightbearing for 4 weeks with a hinged knee brace with close outpatient monitoring -possible allergic reaction to medications possible Dilaudid. Received one dose on admission and developed a rash which appears to be worsening and consulted ID and appreciate recommendations. Starting IV steroids. -Osteoarthritis -Chronic lymphocytic leukemia -Breast cancer; patient awaits callback from [facility] as scheduled for mastectomy -DVT prophylaxis; SCDs -CODE STATUS; full code Plan: Recommend to continue with current medications and avoid dilaudid as patient received a dose in the ED and shortly after has developed this generalized hive with erythema and welting noted. Patient is extremely itchy and has been refusing benadryl and and ID following. Patient is to continue with non- weightbearing and hinged knee brace to the right lower extremity and orthopedic follow up in four weeks. Patient is weak and PT recommends rehab and will be going to [facility]CF once accepting facility is obtained. Patient being given IV steroids and will monitor overnight for improvement in rash. Possible discharge in 24 hours. Objective - Vital Signs Vital signs: Vital Signs Temp 98.4 F 06/13/21 21:00 Pulse 86 06/13/21 21:00 Resp 18 06/13/21 21:00 BP 144/52 06/13/21 21:00 Pulse Ox 93 L 06/13/21 21:00 Intake & Output 06/13/21 06/13/21 06/14/21 06:59 18:59 06:59 Intake Total 500 Balance 500 Intake: Oral 500 Other: Voiding Method Bedside Commode Bedside Commode Bedpan # Voids 3 3 - Labs CBC & Chem 7: 06/12/21 05:14 06/12/21 05:14
[2021-06-14 05:07] VITALS: RESP 16
[2021-06-14] MEDS: VITAMIN E (DL,TOCOPHERYL ACET) 400 UNIT (180 MG) CAP PO SCH (08:32)
[2021-06-14] MEDS: MECLIZINE 25 MG TAB PO SCH (08:32)
[2021-06-14] MEDS: LORATADINE-PSEUDOEPH 5-120 MG 1 EACH TAB.ER.12H PO SCH ×2 (08:32→20:44)
[2021-06-14] MEDS: traMADol 50 MG TAB PO SCH (08:33)
[2021-06-14] MEDS: ACALABRUTINIB 100 MG PO SCH ×2 (08:33→20:59)
--- NOTE | 2021-06-14 08:43 | P.CONS ---
History of Present Illness - Reason for Consult Consult date: 06/13/21 rash Requesting physician: Lanette Thornton - Chief Complaint rash x 1 day - History of Present Illness History of present illness : Patient is a 75-year female presenting to the ER on 06/09/2021 for evaluation of right leg pain patient did have a fall hurting her right knee patient on presentation to the hospital was afebrile did have low-grade fever 100.3 on 06/11/2021 no fever since then patient did have vital a 14.7 visit on .9 creatinine was normal wyman PCR was negative patient did have a x-ray of the knee mild soft tissues swelling and some irregular involving the proximal fibula patient did have a CT of the lower extremity acute community created intra-articular fracture of the proximal tibia patient has been admitted to the orthopedic service is with the plan for close treatment with a hinged knee brace patient also receiving pain medication in the form of Dilaudid and Brave patient has developed a burning rash mostly more to the back and to the leg area that has prompted this infectious disease consultation patient currently do not have any sores in the mouth denies having any wheezing or difficulty breathing pain to the knee he is mostly dull aching 4 to 5-10 and is currently controlled with the current pain medication Review of system: CONSTITUTIONAL: Positive for weakness denies high-grade fever. EYES: No complaint. ENT: No complaint. RESPIRATORY: No complaint. CARDIOVASCULAR: No complaint. GENITOURINARY: No complaint. GASTROINTESTINAL: No complaint. MUSCULOSKELETAL: As per history of present illness. INTEGUMENTARY: As per history of present illness. PSYCHOLOGIC: No complaint. ENDOCRINE: No complaint. NEUROLOGIC: No complaint. Past medical history : Reviewed, documented below Past surgical history : Reviewed, documented below Social history: Reviewed, documented below Medications: Reviewed, as documented below EXAMINATION: Vital sigans= Reviewed and documented below GENERAL DESCRIPTION: Elderly female up in the chair, no distress. No tachypnea or accessory muscle of respiration use. HEENT: Shows Pallor , no scleral icterus. Oral mucous membrane is dry. NECK: Trachea central, no thyromegaly. LUNGS: Unlabored breathing. Clear to auscultation anteriorly. No wheeze or crackle. HEART: S1, S2, regular rate and rhythm. ABDOMEN: Soft, no tenderness , guarding or rigidity EXTREMITIES: No edema of feet. SKIN: Diffuse maculopapular rash especially more with the back lower extremity no blister. NEUROLOGICAL: The patient is awake, alert, oriented x3, mood and affect normal. LABS AND RADIOLOGY: Reviewed results see below Assessment : Patient with diffuse erythematous rash especially involving the back lower extremity is more likely a drug rash and the findings are could be Dilaudid or Brave clinically doubt infectious etiology Plan: 1-recommend discontinue Dilaudid and Brave 2-we will give her Solu-Medrol in view of the extensive rash 3-no need for systemic antibiotic therapy We will follow on clinical condition and cultures to further adjust medication if needed Thank you for this consultation we will follow the patient along with you Past Medical History Past Medical History: Cancer, Osteoarthritis (OA) Additional Past Medical History / Comment(s): meniers, breast cancer, CLL History of Any Multi-Drug Resistant Organisms: None Reported Past Surgical History: Breast Surgery, Hysterectomy, Orthopedic Surgery Additional Past Surgical History / Comment(s): breast biopsy, bladder biopsy, tibia l surgery with devora placement, l great toe tip removed Past Anesthesia/Blood Transfusion Reactions: No Reported Reaction Past Psychological History: Anxiety, Depression Additional Psychological History / Comment(s): takes 1/2 tablet as needed Smoking Status: Former smoker Past Alcohol Use History: None Reported, Rare Past Drug Use History: None Reported - Past Family History Mother Family Medical History: Cancer Additional Family Medical History / Comment(s): pancreatic Father Family Medical History: Cancer, Myocardial Infarction ([place]) Additional Family Medical History / Comment(s): stomach Sister(s) Family Medical History: Cancer Additional Family Medical History / Comment(s): colon Medications and Allergies Home Medications Medication Instructions Recorded Confirmed Type Loratadine-Pseudoeph 10-240 mg 1 tab PO DAILY 01/01/16 06/09/21 History [Claritin-D 24 Hour] Acalabrutinib [Calquence] 100 mg PO BID 06/09/21 06/09/21 History Eriberto/D3/Mag11/Zinc/[employer]/[place]igo/Bor 1 tab PO DAILY 06/09/21 06/09/21 History [Caltrate 600+D Plus Tablet] Meclizine [Antivert] 25 mg PO DAILY 06/09/21 06/09/21 History Meclizine [Antivert] 25 mg PO DAILY PRN 06/09/21 06/09/21 History Super Vitamin D 1 tab PO DAILY 06/09/21 06/09/21 History Vitamin E (Dl,Tocopheryl Acet) 400 unit PO DAILY 06/09/21 06/09/21 History [Vitamin E (400 Iu = 180 mg)] HYDROcodone/APAP 5-325MG [Brave 5] 1 each PO Q4-6H PRN #30 tab 06/11/21 Rx Allergies Allergy/AdvReac Type Severity Reaction Status Date / Time adhesive tape Allergy Rash/Hives Verified 06/09/21 20:08 ointments Allergy Rash/Hives Uncoded 06/09/21 17:34 Physical Exam Vitals: Vital Signs Temp Pulse Resp BP Pulse Ox 06/13/21 04:19 98.1 F 71 20 111/52 94 L 06/12/21 21:00 99.1 F 79 18 134/61 92 L Intake and Output 06/12/21 06/13/21 06/13/21 22:59 06:59 14:59 Intake Total 600 Balance 600 Intake: Intake, IV Titration 600 Amount Sodium Chloride 0.9% 1, 600 000 ml @ 75 mls/hr IV . [id number] [facility] Rx#:[id number] Other: Voiding Method Bedside Commode Bedpan # Voids 3 Results CBC & Chem 7: 06/12/21 05:14 06/12/21 05:14
[2021-06-14] MEDS ORDERED: CALAMINE/ZINC OXIDE LOTION 177 ML BTL TOPICAL PRN (10:56)
[2021-06-14] MEDS: diphenhydrAMINE 50 MG/ML 1 ML VIAL IVP PRN (11:30)
[2021-06-14] MEDS: SODIUM CHLORIDE 0.9% 1,000 ML IV SCH ×2 (15:21→20:45)
[2021-06-14] MEDS: SALT AND SODA MOUTHWASH 1,000 ML PO SCH ×2 (17:27→20:45)
--- NOTE | 2021-06-14 18:32 | P.CONS ---
History of Present Illness - Reason for Consult Consult date: 06/14/21 medication reaction, patient is on a PTK inhibitor for CLL Requesting physician: Lanette Thornton - Chief Complaint fall with tibial fracture - History of Present Illness Ms. Rivera is a very pleasant 75-year-old female patient of Dr. Moe who was admitted about 5 days ago after an accidental fall in which she fractured her tibia. When she was admitted to the hospital, within 12 hours of admit she broke out in a very severe rash, more concentrated on the abdomen, fades as it goes distally, also noted only in certain areas of clothing (i.e. she has a triangular patch on her back with no rash, the rash goes over her shoulders almost like "straps"). The rash is puritic, it isn't getting worse but, it is not getting better. As of note patient took her acalabrutinib prior to admission, did not take until yesterday when it was brought to her from home. She has been on acalabrutinib since at least August 2020, she has had no significant side effects, it has managed her CLL very well. Her tibia fracture is being managed medically, no plans for surgical intervention right now. Malignancy history is as follows:. Patient was initially seen in consult at [facility] 01/01/16. Admitted with progressive weakness, shortness of breath. Hemoglobin 5-6 range, WBC 200+, platelet 40-50,000. 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 She received bendamustine and Rituxan, 6 cycles. She did very well after this treatment until about August 2019. She was experiencing constitutional symptoms, she had significant lymphocytosis, worsening anemia and thrombocytopenia. She was started on imbruvica. She had a good response to treatment, resolution of her constitutional symptoms and improvement in her blood counts. She had a dose reduction in August 2020 because of side effects. Ultimately, she was switched to acalabrutinib September 2020 because of fatigue and joint pains from the imbruvica. 04/01/2021 pt noticed erythema and nodules in center of left breast implant over the previous few weeks. She has a history of left breast cancer in 1987, treated with bilateral mastectomies, no radiation, adjuvant chemotherapy and tamoxifen. She was referred to Dr Ochoa, punch biopsy on 04/06/2021 was positive for grade 1, invasive ductal carcinoma, ER/IN+ (90%/31%), HER2/ABELARDO negative. She met with Dr. Alcantara at [place] in regard to local recurrence of her breast cancer, she had MRI of breasts and plans for surgery soon. Review of Systems 10 point ROS is neg except as stated in HPI Past Medical History Past Medical History: Cancer, Osteoarthritis (OA) Additional Past Medical History / Comment(s): meniers, breast cancer, CLL History of Any Multi-Drug Resistant Organisms: None Reported Past Surgical History: Breast Surgery, Hysterectomy, Orthopedic Surgery Additional Past Surgical History / Comment(s): breast biopsy, bladder biopsy, tibia l surgery with devora placement, l great toe tip removed Past Anesthesia/Blood Transfusion Reactions: No Reported Reaction Past Psychological History: Anxiety, Depression Additional Psychological History / Comment(s): takes 1/2 tablet as needed Smoking Status: Former smoker Past Alcohol Use History: None Reported, Rare Past Drug Use History: None Reported - Past Family History Mother Family Medical History: Cancer Additional Family Medical History / Comment(s): pancreatic Father Family Medical History: Cancer, Myocardial Infarction ([place]) Additional Family Medical History / Comment(s): stomach Sister(s) Family Medical History: Cancer Additional Family Medical History / Comment(s): colon Medications and Allergies Home Medications Medication Instructions Recorded Confirmed Type Loratadine-Pseudoeph 10-240 mg 1 tab PO DAILY 01/01/16 06/09/21 History [Claritin-D 24 Hour] Acalabrutinib [Calquence] 100 mg PO BID 06/09/21 06/09/21 History Eriberto/D3/Mag11/Zinc/Image Processing Engineer/Rigo/Bor 1 tab PO DAILY 06/09/21 06/09/21 History [Caltrate 600+D Plus Tablet] Meclizine [Antivert] 25 mg PO DAILY 06/09/21 06/09/21 History Meclizine [Antivert] 25 mg PO DAILY PRN 06/09/21 06/09/21 History Super Vitamin D 1 tab PO DAILY 06/09/21 06/09/21 History Vitamin E (Dl,Tocopheryl Acet) 400 unit PO DAILY 06/09/21 06/09/21 History [Vitamin E (400 Iu = 180 mg)] Allergies Allergy/AdvReac Type Severity Reaction Status Date / Time adhesive tape Allergy Rash/Hives Verified 06/09/21 20:08 ointments Allergy Rash/Hives Uncoded 06/09/21 17:34 Physical Exam Vitals: Vital Signs Temp Pulse Resp BP Pulse Ox 06/14/21 05:00 98.2 F 76 16 141/55 91 L 06/13/21 21:00 98.4 F 86 18 144/52 93 L 06/13/21 19:58 86 18 06/13/21 13:15 98.4 F 74 16 112/57 96 Intake and Output 06/13/21 06/14/21 06/14/21 22:59 06:59 14:59 Intake Total 500 Balance 500 Intake: Oral 500 Other: Voiding Method Bedside Commode # Voids 3 3 1 # Bowel Movements 1 - Constitutional General appearance: average body habitus, cooperative, no acute distress - EENT scant thrush in bilateral buccal areas Eyes: anicteric sclerae, EOMI ENT: hearing grossly normal - Neck Neck: no lymphadenopathy - Respiratory Respiratory: bilateral: CTA - Cardiovascular Rhythm: regular Heart sounds: normal: S1, S2 Abnormal Heart Sounds: no systolic murmur, no diastolic murmur, no rub, no S3 Gallop, no S4 Gallop, no click, no other leg Peripheral Edema: bilateral: Trace - Gastrointestinal General gastrointestinal: no absent bowel sounds, no decreased bowel sounds, no distended, no hepatomegaly, no hyperactive bowel sounds, normal bowel sounds, no organomegaly, no rigid, no scaphoid, soft, no splenomegaly, no tenderness, no um bilical hernia, no ventral hernia - Integumentary Integumentary: rash - Neurologic Neurologic: CNII-XII intact - Musculoskeletal Musculoskeletal: strength equal bilaterally - Psychiatric Psychiatric: A&O x's 3, appropriate affect, intact judgment & insight Results CBC & Chem 7: 06/12/21 05:14 06/12/21 05:14 Assessment and Plan (1) Rash Narrative/Plan: Looks looks it could be a drug reaction-worse on trunk and fades as it travels distal on the extremities. Interestingly, the rash forms a perfect "tank top" on her upper body (the rash forms what looks like straps over her shoulders), very little on the breasts, there is no rash around her naval (where the skin would have been possibly folded in from sitting). Pt has been on calquence si nce about Aug 2020 without incidence. I did do a drug interaction check with the medicines she is on in the hospital, no significant interactions found. Patient's CLL drug was not given to her since admit as it wasn't brought from home until last night. Do not think that this is a reaction secondary to that. The rash has not got worse and it has not gotten better. Continue calquence. Patient was refusing Benadryl, encouraged her to take the Benadryl and steroids as the Attending team as prescribed for her. Discussion with Attending SENIOR PROPERTY ACCOUNTANT as well as RN caring for the patient. Suspect that this may be an atopic dermatitis reaction to maybe the detergents or the bedding or gown. Will see if patient situation improves with more intense treatment of the rash. Current Visit: Yes Status: Acute Priority: High Code(s): R21 - RASH AND OTHER NONSPECIFIC SKIN ERUPTION SNOMED Code(s): 946436520 (2) CLL (chronic lymphocytic leukemia) Narrative/Plan: continue calquence Current Visit: No Status: Chronic Priority: Low Code(s): C91.10 - CHRONIC LYMPHOCYTIC LEUK OF B-CELL TYPE NOT ACHIEVE REMIS SNOMED Code(s): 45156327
[2021-06-14 21:13] LABS: Partial Thromboplastin Time 21.4 sec (22.0-30.0)
--- NOTE | 2021-06-14 22:32 | PN ---
PROGRESS NOTE DATE OF SERVICE: 06/14/2021 REASON FOR FOLLOWUP VISIT: Drug rash. INTERVAL HISTORY: Patient is afebrile. The patient is breathing comfortably. Still has significant rash to the wound area. No extension. yesterday. No chest pain. No shortness of breath. No wheezing or tongue swelling. No abdominal pain or diarrhea. PHYSICAL EXAMINATION: Blood pressure 161/63 with a pulse of 81, temperature 98.3. She is 93% on room air. General description is an elderly female up in the chair in no distress. Respiratory system: Unlabored breathing, decreased intensity in breath sounds. No wheeze. Heart S1, S2. Regular rate and rhythm. Abdomen soft, no tenderness. Examination of skin did show extensive rash. LABS: No new labs have been obtained today. DIAGNOSTIC IMPRESSION AND PLAN: Patient with extensive rash more likely related to drug will discontinue as well, Sabinal. Dilaudid was discontinued notice yesterday. The patient started on Solu- Medrol. We will add calamine lotion for symptomatic relief and evaluate the patient tomorrow. Case was discussed with the admitting team. MMODL / IJN: [id number] /
[2021-06-15] MEDS: methylPREDNISolone SOD SUCCI 125 MG/2 ML VIAL IV SCH ×3 (00:34→13:53)
[2021-06-15] MEDS: SALT AND SODA MOUTHWASH 1,000 ML PO SCH ×3 (00:34→13:54)
[2021-06-15 03:37] LABS: INR 0.9 (<1.2); Prothrombin Time 9.9 sec (9.0-12.0)
[2021-06-15 05:03] VITALS: BP 149/72; PULSE 73; TEMP 98.5
--- NOTE | 2021-06-15 05:51 | P.PN ---
Subjective Progress Note Date: 06/14/21 Tibial plateau fracture 75yo F since the emergency department today via ambulance for evaluation of righ t leg pain. Patient was standing a glass door when she turned to walk she turned funny falling to the ground hurting her right knee. She has pain in her right knee and newell. No other injuries. Did not strike her head. Workup in ED; x-rays confirm a tibial plateau fracture, computed tomography scan was obtained confirms a tibial plateau fracture non-displaced but slightly depressed Blood work reveals to 14.7, hemoglobin of 14 and hematocrit 42.2 and platelet count of 239, sodium 136, potassium 4.3, BUN/creatinine of 50/2.5 Patient is admitted for further orthopedic evaluation 06/12/2021 Patient is seen and evaluated sitting up in bedside chair; denies any specific complaints Vital signs are reviewed and stable with temperature 99.3, pulse 74, respiration 20 and blood pressure of 105/52 Labs are reviewed 39.3 and platelet count of 202, sodium 136, potassium 76, BUN of 10.7 with creatinine of 0.6 Patient does have knee brace in place; orthopedic surgery has signed off; patient has been evaluated by PT and is recommended skilled rehab 06/13/2021 Patient is seen in follow up today and was seen and evaluated by orthopedics and brace is noted on lower extremity. No surgical intervention planned for tibial plateau fracture. Patient is scheduled to go to [facility] for rehab and awaiting acceptance from facility. Patient is having extreme amount of itching with redness and hives noted all over upper and lower extremities as well as all over the back. Appears to be an allergic reaction. Patient did receive one dose of IV dilaudid and rash started shortly after. Patient has been refusing benadryl stating it doesn't help. Will consult ID for further recommendations and input. 06/14/2021 Patient seen this morning and continues with rash all over and has been ordered sterile gowns and linens as this appears to be a possible atopic dermatitis from the linen and the way it appears on the affected skin. Patient to continue on benadryl and calamine was ordered for itching relief although patient concerned to be using the steroids, benadryl, and calamine as she takes calquence for her leukemia and states she has had multiple drug interactions in the past. Will consult oncology as she follows with Dr. Austin for her leukemia. Review of systems: Constitutional: no reports of fatigue, no reports of fever, or chills, mildly anxious Cardiovascular: No reports of chest pain or palpitations Respiratory: No reports of shortness of breath : No reports of dysuria or retention Neurovascular: Reports generalized weakness SKin: reports generalized rash all over body and extreme itchiness. Active Medications Acetaminophen (Acetaminophen Tab 325 Mg Tab) 650 mg PO Q6HR PRN PRN Reason: Mild Pain or Fever > 100.5 Last Admin: 06/12/21 09:52 Dose: 650 mg Documented by: Acetaminophen/Codeine Phosphate (Acetaminophen-Codeine 300-30mg Tab) 1 each PO Q4HR PRN PRN Reason: Pain Scale 1 to 5 Calamine (Calamine/Zinc Oxide Lotion 177 Ml Btl) 1 applic TOPICAL QID PRN; Protocol PRN Reason: Skin Irritation Diphenhydramine HCl (Diphenhydramine 50 Mg/Ml 1 Ml Vial) 25 mg IVP Q6HR PRN PRN Reason: Allergy Symptoms Last Admin: 06/14/21 11:30 Dose: 25 mg Documented by: Sodium Chloride (Saline 0.9%) 1,000 mls @ 75 mls/hr IV .[id number] [facility] Last Admin: 06/14/21 20:45 Dose: 75 mls/hr Documented by: Ibuprofen (Ibuprofen 400 Mg Tab) 400 mg PO Q6HR PRN PRN Reason: Mild Pain or Fever > 100.5 Loratadine/Pseudoephedrine Sulfate (Loratadine-Pseudoeph 5-120 Mg 1 Each Tab.Er.12h) 1 each PO BID [facility] Last Admin: 06/14/21 20:44 Dose: 1 each Documented by: Meclizine HCl (Meclizine 25 Mg Tab) 25 mg PO DAILY PRN PRN Reason: Vertigo Meclizine HCl (Meclizine 25 Mg Tab) 25 mg PO DAILY [facility] Last Admin: 06/14/21 08:32 Dose: 25 mg Documented by: Methylprednisolone Sodium Succinate (Methylprednisolone Sod Succi 125 Mg/2 Ml Vial) 60 mg IV Q6HR [facility] Last Admin: 06/15/21 00:34 Dose: 60 mg Documented by: Naloxone HCl (Naloxone 0.4 Mg/Ml 1 Ml Vial) 0.2 mg IV Q2M PRN PRN Reason: Opioid Reversal Calquene ( Acalabrutinib) 100 Mg Capsule 100 mg PO BID [facility] Last Admin: 06/14/21 20:59 Dose: 100 mg Documented by: Sodium Bicarbonate (Salt And Soda Mouthwash 1,000 Ml) 5 ml PO 5XD [facility] Last Admin: 06/15/21 00:34 Dose: 5 ml Documented by: Vitamin E (Vitamin E (Dl,Tocopheryl Acet) 400 Unit (180 Mg) Cap) 400 unit PO DAILY [facility] Last Admin: 06/14/21 08:32 Dose: 400 unit Documented by: Physical exam: GENERAL: The patient is alert and oriented x3,not in acute distress. Well developed, well nourished. HEENT: Pupils are round and equally reacting to light. EOMI. No scleral icterus. No conjunctival pallor. Normocephalic, atraumatic. No pharyngeal erythema. No thyromegaly. CARDIOVASCULAR: S1 and S2 present. No murmurs, rubs, or gallops. PULMONARY: Chest is clear to auscultation, no wheezing or crackles. ABDOMEN: Soft, nontender, nondistended, normoactive bowel sounds. No palpable organomegaly. MUSCULOSKELETAL: No joint swelling or deformity. EXTREMITIES: No cyanosis, clubbing, or pedal edema. right leg in splint NEUROLOGICAL: Gross neurological examination did not reveal any focal deficits. diffusely weak SKIN: redness with hives and splotches noted on back, buttock, upper and lower extremities Assessment: -Fall with right knee pain; tibial plateau fracture, Patient has been evaluated by orthopedic surgery and recommending operative treatment to the right proximal tibial fracture; patient will be nonweightbearing for 4 weeks with a hinged knee brace with close outpatient monitoring -possible allergic reaction to medications or atopic dermatitis secondarry to linens, on IV steroids, add calamine, sterile sheets and linens ordered. -Osteoarthritis -Chronic lymphocytic leukemia -Breast cancer; patient awaits callback from [facility] as scheduled for mastectomy -DVT prophylaxis; SCDs -CODE STATUS; full code Plan: Recommend to continue with current medications and avoid dilaudid and Lynden as patient received a dose in the ED and shortly after has developed this gener alized hive with erythema and welting noted. Patient is extremely itchy and has been refusing benadryl and and ID following. ONcology consulted as she follows with Dr. Austin for her leukemia and takes Calquence that has many interactions with other medications and patient is extremely cautious as to what she uses for medications even topical meds. Patient is to take the steroids and benadryl as t here were no interactions noted with a med check. Patient is to continue with non-weightbearing and hinged knee brace to the right lower extremity and orthopedic follow up in four weeks. Patient is weak and PT recommends rehab and will be going to ECF once accepting facility is obtained. Patient being given IV steroids and will monitor overnight for improvement in rash. Possible discharge in 24 hours. Objective - Vital Signs Vital signs: Vital Signs Temp 98.2 F 06/14/21 05:00 Pulse 76 06/14/21 05:00 Resp 16 06/14/21 05:00 BP 141/55 06/14/21 05:00 Pulse Ox 91 L 06/14/21 05:00 Intake & Output 06/13/21 06/14/21 06/14/21 18:59 06:59 18:59 Intake Total 500 Balance 500 Intake: Oral 500 Other: Voiding Method Bedside Commode # Voids 3 3 - Labs CBC & Chem 7: 06/12/21 05:14 06/12/21 05:14
[2021-06-15 09:02] LABS: HCT 36.9 % (34.0-46.0); HGB 12.4 gm/dL (11.4-16.0); MCH 31.8 pg (25.0-35.0); MCHC 33.6 g/dL (31.0-37.0); MCV 94.7 fL (80.0-100.0); Mean Platelet Volume 7.4; Platelet Count 332 k/uL (150-450); RDW 12.8 % (11.5-15.5); WBC 12.3 k/uL (3.8-10.6)
[2021-06-15 09:27] LABS: Lymphocytes # (M) 0.74 k/uL (1.0-4.8); Monocytes # (M) 0.98 k/uL (0-1.0); Neutrophils # (M) 10.58 k/uL (1.3-7.7); Neutrophils % (M) 86 %; Nucleated Red Blood Cells 0 /100 WBC (0-0); Total Cells Counted 100
[2021-06-15] MEDS: LORATADINE-PSEUDOEPH 5-120 MG 1 EACH TAB.ER.12H PO SCH (10:13)
[2021-06-15] MEDS: MECLIZINE 25 MG TAB PO SCH (10:13)
[2021-06-15] MEDS: VITAMIN E (DL,TOCOPHERYL ACET) 400 UNIT (180 MG) CAP PO SCH (10:13)
[2021-06-15] MEDS: ACALABRUTINIB 100 MG PO SCH (10:14)
--- NOTE | 2021-06-15 12:07 | P.PN ---
Subjective Progress Note Date: 06/15/21 Principal diagnosis: Rash and Fracture, CLL and Breast Cancer Rash is on bilateral arms, Legs, posterior thorax and anterior. She states it is itchy and uncomfortable. Objective - Vital Signs Vital signs: Vital Signs Temp 98.5 F 06/15/21 05:00 Pulse 73 06/15/21 05:00 Resp 16 06/15/21 05:00 BP 149/72 06/15/21 05:00 Pulse Ox 92 L 06/15/21 07:57 Intake & Output 06/14/21 06/15/21 06/15/21 18:59 06:59 18:59 Intake Total 900 Balance 900 Intake: Intake, IV Titration 900 Amount Sodium Chloride 0.9% 1, 900 000 ml @ 75 mls/hr IV . [id number] [facility] Rx#:[id number] Other: Voiding Method Bedside Commode Bedside Commode # Voids 1 3 # Bowel Movements 1 - Exam Alert and Oriented X3 NAD Neck: Supple Rash: Blotchy covering 60-70% body Lungs: CTA Heart: RRR ExtL Left arm with some edema Abdomen Soft Calm and Cooperative - Labs CBC & Chem 7: 06/15/21 08:03 06/12/21 05:14 Labs: Abnormal Lab Results - Last 24 Hours (Table) 06/14/21 06/15/21 Range/Units 20:10 08:03 WBC 12.3 H (3.8-10.6) k/uL Neutrophils # (Manual) 10.58 H (1.3-7.7) k/uL Lymphocytes # (Manual) 0.74 L (1.0-4.8) k/uL APTT 21.4 L (22.0-30.0) sec Assessment and Plan (1) Breast cancer Current Visit: Yes Status: Acute Code(s): C50.919 - MALIGNANT NEOPLASM OF UNSP SITE OF UNSPECIFIED FEMALE BREAST SNOMED Code(s): 057479946 (2) Rash Current Visit: Yes Status: Acute Priority: High Code(s): R21 - RASH AND OTHER NONSPECIFIC SKIN ERUPTION SNOMED Code(s): 748731044 (3) Tibial plateau fracture, right Current Visit: Yes Status: Acute Code(s): S82.141A - DISPLACED BICONDYLAR FRACTURE OF RIGHT TIBIA, INIT SNOMED Code(s): 159930432 (4) Symptomatic anemia Current Visit: No Status: Acute Code(s): D64.9 - ANEMIA, UNSPECIFIED SNOMED Code(s): 822150752 (5) CLL (chronic lymphocytic leukemia) Current Visit: No Status: Chronic Priority: Low Code(s): C91.10 - CHRONIC LYMPHOCYTIC LEUK OF B-CELL TYPE NOT ACHIEVE REMIS SNOMED Code(s): 71527410 Plan: Systemic Rash: - Appears to be reactive to sensitivity or allergy versus secondary to CLL diagnosis - Agree with continuing anti-histamines and corticosteroids - add ppi with high dose CTS. - Exact etiology unknown, although not likely related to calquence - Continue on this at this time Right Tibial Fracture: - Review of CT does not appear pathological - Ortho following Breast Cancer: - She is scheduling mastectomy and was concerned about the status of this surgery given everything unexpected going on, Our office did get in contact with her surgeons office and their plant nursery worker is currently out of the office but will call her as soon as back to discuss date further Physician Attest: I have completed the full history and physical and agree with above dictation, dictated as a ascribe.
[2021-06-15 13:09] LABS: ALT 38 U/L (4-34); AST 28 U/L (14-36); African American GFR (CKD) >90 (>60 ml/min/1.73 sqM); Albumin 3.3 g/dL (3.5-5.0); Albumin/Globulin Ratio 1.5; Alkaline Phosphatase 62 U/L (38-126); Anion Gap 8 mmol/L; Blood Urea Nitrogen 17 mg/dL (7-17); Calcium 9.1 mg/dL (8.4-10.2); Carbon Dioxide 21 mmol/L (22-30); Chloride 105 mmol/L (98-107); Globulin 2.2 g/dL; Glucose 140 mg/dL (74-99); Magnesium 2.1 mg/dL (1.6-2.3); Non-African American GFR(CKD) >90 (>60 ml/min/1.73 sqM); Sodium 134 mmol/L (137-145); Total Bilirubin 0.4 mg/dL (0.2-1.3); Total Protein 5.5 g/dL (6.3-8.2)
--- NOTE | 2021-06-15 13:58 | P.DS ---
Providers Date of admission: 06/09/21 20:50 Expected date of discharge: 06/15/21 Attending physician: Amna Moreira MD Consults: 06/09/21 20:50 Consult Physician Routine Consulting Provider: Deya De León Consult Reason/Comments: medical management Do you want consulting provider notified?: Yes 06/10/21 11:21 Consult Physician Routine Consulting Provider: Minnie Ortiz Consult Reason/Comments: right tibial plateau fracture Do you want consulting provider notified?: Already Contacted 06/13/21 11:48 Consult Physician Urgent Consulting Provider: Haroon Tan Consult Reason/Comments: rash Do you want consulting provider notified?: Yes 06/14/21 10:41 Consult Physician Urgent Consulting Provider: Eze Cross Consult Reason/Comments: possible med reaction/allergic/ follows rylee on [place] Do you want consulting provider notified?: Yes Primary care physician: Tyra Newport Hospital Course: Final diagnosis -Fall with right knee pain; tibial plateau fracture, Patient has been evaluated by orthopedic surgery and recommending operative treatment to the right proximal tibial fracture; patient will be nonweightbearing for 4 weeks with a hinged knee brace with close outpatient monitoring -possible allergic reaction to medications or atopic dermatitis secondary to linens -Osteoarthritis -Chronic lymphocytic leukemia -Breast cancer; patient awaits callback from [facility] as scheduled for mastectomy -DVT prophylaxis -full code Discharge disposition Patient is being discharged in a stable condition with guarded prognosis to [facility] for continued PT/OT therapy. Patient will follow-up with Dr. Ochoa in the outpatient setting upon discharge. Patient will also need to follow-up with orthopedics Dr. Ortiz along with Dr. Austin in the outpatient setting. Patient is to continue with prednisone taper on discharge. Total time taken is greater than 35 minutes. Hospital course This is a 75-year-old female who was recently admitted with right leg pain status post fall and was found to have a tibial plateau fracture on currently in a brace as the fracture is nondisplaced but slightly depressed. Patient will need to remain offloading for 4 weeks per orthopedic recommendations with possible surgical intervention after follow-up appointment in approximately 4 weeks. Patient to continue with the brace. Patient also developed a rash is possibly an ALLERGIC reaction to the medication of Dilaudid or [place] that was given in the ER and/or atopic dermatitis related to the linens at the hospital and gowns. Patient was started on IV steroids and will continue on a prednisone taper. Patient may also use Benadryl as needed for itching. Currently no reports of chest pain, shortness of breath, or palpitations. Patient is afebril e. No reports of nausea or vomiting and patient is tolerating diet. Patient will be going to [facility] today. Physical exam: GENERAL: The patient is alert and oriented x3,not in acute distress. Well developed, well nourished. HEENT: Pupils are round and equally reacting to light. EOMI. No scleral icterus. No conjunctival pallor. Normocephalic, atraumatic. No pharyngeal erythema. No thyromegaly. CARDIOVASCULAR: S1 and S2 present. No murmurs, rubs, or gallops. PULMONARY: Chest is clear to auscultation, no wheezing or crackles. ABDOMEN: Soft, nontender, nondistended, normoactive bowel sounds. No palpable organomegaly. MUSCULOSKELETAL: No joint swelling or deformity. EXTREMITIES: No cyanosis, clubbing, or pedal edema. right leg in splint NEUROLOGICAL: Gross neurological examination did not reveal any focal deficits. diffusely weak SKIN: redness with hives and splotches noted on back, buttock, upper and lower extremities, slightly improved Please refer to medication reconciliation sheet for a list of medications. Patient Condition at Discharge: Stable Plan - Discharge Summary New Discharge Prescriptions: New Calamine/Zinc Oxide Lotion [Calamine Lotion] 1 applic TOPICAL QID PRN ml PRN Reason: Skin Irritation predniSONE 10 mg PO DIRECTED #30 tab Acetaminophen Tab [Tylenol] 650 mg PO Q6HR PRN tab PRN Reason: Mild Pain Or Fever > 100.5 diphenhydrAMINE [Benadryl] 25 mg PO TID PRN #10 capsule PRN Reason: Itching Pantoprazole [Protonix] 40 mg PO AC-BRKFST tab Continue Loratadine-Pseudoeph 10-240 mg [Claritin-D 24 Hour] 1 tab PO DAILY Vitamin E (Dl,Tocopheryl Acet) [Vitamin E (400 Iu = 180 mg)] 400 unit PO DAILY Meclizine [Antivert] 25 mg PO DAILY Eriberto/D3/Mag11/Zinc/Mushroom Farmer/Rigo/Bor [Caltrate 600+D Plus Tablet] 1 tab PO DAILY Super Vitamin D 1 tab PO DAILY Acalabrutinib [Calquence] 100 mg PO BID Meclizine [Antivert] 25 mg PO DAILY PRN PRN Reason: Vertigo Discharge Medication List Loratadine-Pseudoeph 10-240 mg [Claritin-D 24 Hour] 1 tab PO DAILY 01/01/16 [History] Acalabrutinib [Calquence] 100 mg PO BID 06/09/21 [History] Eriberto/D3/Mag11/Zinc/Mushroom Farmer/Rigo/Bor [Caltrate 600+D Plus Tablet] 1 tab PO DAILY 06/09/21 [History] Meclizine [Antivert] 25 mg PO DAILY 06/09/21 [History] Meclizine [Antivert] 25 mg PO DAILY PRN 06/09/21 [History] Super Vitamin D 1 tab PO DAILY 06/09/21 [History] Vitamin E (Dl,Tocopheryl Acet) [Vitamin E (400 Iu = 180 mg)] 400 unit PO DAILY 06/09/21 [History] Acetaminophen Tab [Tylenol] 650 mg PO Q6HR PRN tab 06/15/21 [Rx] Calamine/Zinc Oxide Lotion [Calamine Lotion] 1 applic TOPICAL QID PRN ml 06/15/21 [Rx] Pantoprazole [Protonix] 40 mg PO AC-BRKFST tab 06/15/21 [Rx] diphenhydrAMINE [Benadryl] 25 mg PO TID PRN #10 capsule 06/15/21 [Rx] predniSONE 10 mg PO DIRECTED #30 tab 06/15/21 [Rx] Follow up Appointment(s)/Referral(s): Minnie Ortiz DO [Doctor of Osteopathic Medicine] - 2 Weeks Tyra Ochoa MD [Primary Care Provider] - 1-2 days Tobias Moe MD [STAFF PHYSICIAN] - 07/05/21 3:00 pm Activity/Diet/Wound Care/Special Instructions: Nonweightbearing right leg for 4 weeks with walker and hinged knee brace. Remove brace for bathing and daily skin checks. Follow up with Dr. Ortiz in 2 weeks. Call for appointment, . Continue with prednisone taper until finished Follow-up primary care provider on discharge Continue current diet Follow-up orthopedics outpatient follow up oncology outpatient Discharge Disposition: TRANSFER TO SNF/ECF
[2021-06-15 14:01] VITALS: BMI 20.4
--- NOTE | 2021-06-15 15:15 | PN ---
PROGRESS NOTE DATE OF SERVICE: 06/15/2021 REASON FOR FOLLOW UP: Drug rash. INTERVAL COURSE: The patient is afebrile. The patient is currently breathing comfortably. The patient overall rash is decreased intensity. No chest pain, shortness of breath or cough. No abdominal pain or diarrhea. PHYSICAL EXAMINATION: Blood pressure 149/72 with a pulse of 73, temperature 98.5. She is 94% on room air, General description is an elderly female up in the chair in no distress. Respiratory system: Unlabored breathing, decreased intensity of breath sounds. No wheeze. Heart S1, S2. Regular rate and rhythm. Abdomen soft, no tenderness. The rash overall is decreased in intensity. LABS: Hemoglobin is 12.4, white count 12.3. DIAGNOSTIC IMPRESSION AND PLAN: Patient with extensive rash, likely secondary to drug could be related to the Ultram though or Dilaudid that was started in the hospital, has been discontinued. We will give her a tapering course of prednisone along with calamine lotion. THOSE MEDICATION WILL BE ADDED TO HER ALLERGIES LIST and close outpatient followup. MMODL / IJN: [id number] /
[2021-06-16] MEDS ORDERED: PANTOPRAZOLE 40 MG TABLET PO SCH (07:30)
== END 2021-06-15 17:00 | DRG 563 ==
LOC: EC 17:23 → 5NMEDONC 20:50 → OBSVTOIN 20:50 → 5NMEDONC 22:17
PROVIDERS: ADMIT Internal Medicine; ATTEND Internal Medicine
PROC: 2W3MX3Z Immobilization of Left Lower Extremity using Brace (ICD-10-PCS; principal; 2021-06-09)
DX: S82.144A Nondisplaced bicondylar fracture of right tibia, initial encounter for closed fracture (principal); C91.10 Chronic lymphocytic leukemia of B-cell type not having achieved remission; B37.0 Candidal stomatitis; W19.XXXA Unspecified fall, initial encounter; Y92.009 Unspecified place in unspecified non-institutional (private) residence as the place of occurrence of the external cause; Z17.0 Estrogen receptor positive status [ER+]; I49.3 Ventricular premature depolarization; F41.9 Anxiety disorder, unspecified; L24.0 Irritant contact dermatitis due to detergents; M19.90 Unspecified osteoarthritis, unspecified site; C50.812 Malignant neoplasm of overlapping sites of left female breast; F32.A Depression, unspecified; Z82.49 Family history of ischemic heart disease and other diseases of the circulatory system; Z20.822 Contact with and (suspected) exposure to COVID-19; Z87.891 Personal history of nicotine dependence; Z90.13 Acquired absence of bilateral breasts and nipples; Z90.710 Acquired absence of both cervix and uterus; Z98.82 Breast implant status; Z89.412 Acquired absence of left great toe; Z60.2 Problems related to living alone; Z92.21 Personal history of antineoplastic chemotherapy; Z82.3 Family history of stroke; Z80.0 Family history of malignant neoplasm of digestive organs; Z79.899 Other long term (current) drug therapy
CPT/HCPCS: 80048; 80053; 83735; 85025; 85610; 85730; 86038; 87635; 94760; 99285

== ENCOUNTER → 2022-09-29 | Outpatient (CLI) | payer MEDICARE, OTHER ==
--- NOTE | 2022-10-01 14:23 | PE ---
EXAMINATION TYPE: PET CT fusion skull to thigh DATE OF EXAM: 09/29/2022 CLINICAL INDICATION:Female, 76 years old with history of C91.10; TECHNIQUE: Following the intravenous administration of 9.89 mCi of F-18 FDG, whole body images are performed from the skull base to the midthigh. Images are reviewed on the computer in the coronal, a xial, and sagittal planes. Reconstructed rotating images are created on independent workstation and reviewed on the computer. A non-contrast CT is performed in conjunction with the PET scan. Glucose level 95 mg/dL COMPARISON: CT 08/28/2022 chest abdomen pelvis, PET/CT None, FINDINGS: Mediastinal SUV mean is 1.1. Hepatic parenchyma SUV mean is 1.8. SKULL BASE AND NECK: No suspicious radiotracer activity. Physiologic uptake seen within the bilatera l muscles of the posterior superior neck. Presumably physiologic asymmetric left adenoid uptake max S UV 4.2 and 3.0 on the right, CHEST, MEDIASTINUM, AND HILAR REGION: No suspicious radiotracer activity. Multiple areas of low level s FDG activity within the musculature of the back predominantly in the right. FDG activity within the right supraspinatus muscle. Max SUV 3.3. ABDOMEN AND PELVIS: Retroperitoneal lymphadenopathy which is grossly similar to prior in 08/28/2022 wh ich is not demonstrate increased FDG activity. Similar sized right-sided enlarged lymph node when com paring to prior max SUV 1.2 measuring 2.9 x 1.5 cm similar to prior in the left measuring up to 2.2 x 1.8 cm Max SUV 1.2. OSSEOUS STRUCTURES: No suspicious radiotracer activity. OTHER CT: Bilaterally aphakia. Heterogenous thyroid gland. Carotid bifurcation atherosclerosis. Coron bonnie artery atherosclerosis. Breast implants appear intact. Renal cysts are present. Cholelithiasis. M etallic densities are seen projecting over the posterior pelvis. Right inguinal hernia containing sma ll bowel. Severe atherosclerosis throughout the arterial vasculature. IMPRESSION: 1. Retroperitoneal lymphadenopathy with metabolic activity at near background levels. Consider tissu e sampling if not already performed. Comparison with priors at outside institutions may be of benefit for stability. 2. Muscle strains involving right supraspinatus, superior posterior neck and scattered back muscles predominantly in the right back.
== END | disposition home or self-care (01) ==
LOC: RADPETMAIN 12:40
PROVIDERS: ATTEND Internal Medicine Hematology & Oncology
DX: C91.10 Chronic lymphocytic leukemia of B-cell type not having achieved remission (principal); S46.011A Strain of muscle(s) and tendon(s) of the rotator cuff of right shoulder, initial encounter; R59.0 Localized enlarged lymph nodes
CPT/HCPCS: 78815; A9552

== ENCOUNTER → 2023-10-22 | Outpatient (CLI) | payer MEDICARE, OTHER ==
--- NOTE | 2023-10-22 15:24 | BD ---
EXAMINATION TYPE: Axial Bone Density DATE OF EXAM: 10/22/2023 CLINICAL HISTORY: 77 years old Female. ICD-10 CODE: M85.9 OSTEOPENIA Height: 63in Weight: 115lb FRAX RISK QUESTIONS: History of Fracture in Adulthood: yes Secondary Osteoporosis: RISK FACTORS HISTORY OF: MEDICATIONS: EXAM MEASUREMENTS: Bone mineral densitometry was performed using the SYSTRAN System. Bone mineral density as measured about the Lumbar spine is: ----- L1-L4(G/cm2): 1.065 T Score Values are as follows: ----- L1: -1.4 ----- L2: -2.5 ----- L3: -1.5 ----- L4: 1.1 ----- L1-L4: -1.0 Z Score Values are as follows: ----- L1: 0.8 ----- L2: -0.2 ----- L3: 0.7 ----- L4: 3.3 ----- L1-L4: 1.3 Bone mineral density has: Increased 30.1% since study of: 10-20-21 Bone mineral density about the R hip (g/cm2): 0.708 Bone mineral density about the L hip (g/cm2): 0.769 T Score values are as follows: -----R Neck: -2.3 -----L Neck: -1.6 -----R Total: -2.4 -----L Total: -1.9 Z Score values are as follows: -----R Neck: 0.0 -----L Neck: 0.7 -----R Total: -0.2 -----L Total: 0.2 Bone mineral density has: Increased 2.2% since study of: 10-20-21 FRAX%s: The graph provided illustrates a 21.1% chance for a major osteoporotic fx and a 6.5% chance f or the hips probability for fx in 10 years time. IMPRESSION: Osteopenia (T Score between -2.5 and -1). There is slightly increased risk of fracture and the patient may be considered for treatment. Re-Screen 2-5 years. NOTE: T-SCORE=SD OF THE YOUNG ADULT MEAN.
== END | disposition home or self-care (01) ==
LOC: RADBDWWP 12:18
PROVIDERS: ATTEND Internal Medicine Hematology & Oncology
DX: M85.89 Other specified disorders of bone density and structure, multiple sites (principal); C91.10 Chronic lymphocytic leukemia of B-cell type not having achieved remission; C50.112 Malignant neoplasm of central portion of left female breast; M81.0 Age-related osteoporosis without current pathological fracture
CPT/HCPCS: 77080

== ENCOUNTER 2025-01-09 09:53 | Day surgery (SDC) | payer MEDICARE, OTHER ==
[~2025-01-09 09:53] MED LIST: HYDROmorphone 0.5 MG/0.5 ML SYRINGE IVP PRN
[2025-01-09] MEDS: IV FLUID CONTINUATION 1,000 ML IV ONE ×2 (10:22→12:33)
[2025-01-09] MEDS: ACETAMINOPHEN TAB 500 MG TAB PO PRN (10:40)
[2025-01-09] MEDS: ONDANSETRON 4 MG/2 ML VIAL IVP ONE (10:46)
[2025-01-09] MEDS: DEXAMETHASONE SOD PHOSPHATE 4 MG/ML 1 ML VIAL IVP STA (10:47)
[2025-01-09] MEDS: LACTATED RINGERS 1,000 ML IV SCH (10:47)
[2025-01-09] MEDS: MIDAZOLAM 2 MG/2 ML VIAL IVP ONE (11:06)
[2025-01-09] MEDS: HEPARIN SODIUM,PORCINE 5,000 UNIT/ML 1 ML VIAL SQ PRN (11:16)
[2025-01-09] MEDS ORDERED: SUCCINYLCHOLINE CHLORIDE 200 MG/10 ML VIAL IV ONE (12:33)
[2025-01-09] MEDS ORDERED: ROPIVACAINE 5 MG/ML 30 ML VIAL ONE (12:33)
[2025-01-09] MEDS ORDERED: NEOSTIGMINE 1 MG/ML 10 ML VIAL ONE (12:33)
[2025-01-09] MEDS ORDERED: SODIUM CHLORIDE 0.9% (PF) 10 ML VIAL ONE (12:33)
[2025-01-09] MEDS ORDERED: PHENYLEPHRINE-0.9% NACL SYG 1,000 MCG/10 ML SYRINGE ONE (12:33)
[2025-01-09] MEDS ORDERED: ROCURONIUM 10 MG/ML (5 ML VIAL) IV ONE (12:33)
[2025-01-09] MEDS ORDERED: LIDOCAINE 1% INJ 10MG/ML (20 ML MDV) ONE (12:33)
[2025-01-09] MEDS ORDERED: PROPOFOL 10 MG/ML 20 ML VIAL IV ONE (12:33)
[2025-01-09] MEDS ORDERED: GLYCOPYRROLATE 0.2 MG/ML 2 ML VIAL ONE (12:33)
[2025-01-09] MEDS ORDERED: DEXAMETHASONE SOD PHOSPHATE 4 MG/ML 1 ML VIAL ONE (12:33)
[2025-01-09] MEDS ORDERED: fentaNYL (PF) 50 MCG/ML 2 ML AMP ONE (12:33)
[2025-01-09] MEDS: BUPIVACAINE (PF) 0.25% 30 ML VIAL SQ ONE (13:01)
--- NOTE | 2025-01-09 13:44 | P.ANPRN ---
Procedure Note - Anesthesia - Nerve Block Performed Right Erector Spinae Single Time Out Performed: Yes Date of Procedure: 01/09/25 Procedure Start Time: 11:05 Procedure Stop Time: 11:10 Location of Patient: PreOp Indication: Acute Post-Operative Pain, Requested by Surgeon Sedation Type: Sedate with meaningful contact maintained Preparation: Sterile Prep Position: Prone Needle Types: Pajunk Needle Gauge: 21 Ultrasound used to visualize needle placement: Yes Ultrasound used to observe medication spread: Yes Blood Aspirated: No Pain Paresthesia on Injection Noted: No Resistance on Injection: Normal Image Stored and Saved: Yes Events: Uneventful and Well Tolerated (Ropivacaine 0.5% 15 cc plus normal saline 10 cc plus dexamethasone 4 mg given at L1 on the right side)
[2025-01-09] MEDS ORDERED: traMADol 50 MG TAB PO STA (13:50)
--- NOTE | 2025-01-09 13:54 | P.OP ---
Date of Procedure: 01/09/25 Procedure(s) Performed: PREOPERATIVE DIAGNOSIS: Right inguinal hernia POSTOPERATIVE DIAGNOSIS: Right indirect inguinal hernia PROCEDURE: Open repair right indirect inguinal hernia with mesh SURGEON: Dr. Ochoa ANESTHESIA: General EBL: 10 cc OPERATIVE PROCEDURE DETAILS: Patient was placed in the operating table in the supine position and placed under general anesthesia. An oblique incision was made in the right groin. Dissection down through the subcutaneous tissues took place using electrocautery. The external oblique fascia was incised using a scalpel. This opening was lengthened using the Metzenbaum scissors. The round ligament was dissected and ligated using 3-0 silk ties. The patient had a moderate-sized indirect hernia sac. This was opened and inspected. There was no visible bowel within the hernia sac. The hernia sac was of appropriate thickness. This was carefully dissected back to the internal inguinal ring where it was ligated using 2 separate 0 silk stick tie sutures. A 3" x 6" Prolene mesh was cut to fit on the exposed fascia. This was sutured to the pubic tubercle the folding edge of the inguinal ligament and the conjoined tendon using interrupted 0 Vicryl sutures. The external oblique was then reapproximated using a running 2-0 Vicryl suture. The subcutaneous tissues were reapproximated using a 3-0 Vicryl sutures. The skin was closed using 4-0 Monocryl sutures. Skin glue and sterile dressings were then applied. TYPE OF MESH USED: Flat 2 inch x 4 inch Prolene LOCATION OF MESH: [place] FIXATION: 0 Vicryl PREOPERATIVE DISCUSSION ON SMOKING CESSASTION: Yes PREOPERATIVE DISCUSSION ON MORBID OBESITY: Yes PREOPERATIVE DISCUSSION ON APPROPRIATE USE OF NARCOTIC USE: Yes PREOPERATIVE EDUCATION: Multi Modal, Smoking Cessation and Weight Loss with BMI over 35. DISPOSITION: Stable to recovery room
[2025-01-09 14:00] VITALS: TEMP 96.9
[2025-01-09 14:53] VITALS: RESP 18
[2025-01-09] MEDS ORDERED: IBUPROFEN 600 MG TAB PO SCH (15:00)
[2025-01-09 15:31] VITALS: BP 158/68; PULSE 69
[2025-01-09] MEDS ORDERED: ACETAMINOPHEN TAB 325 MG TAB PO SCH (18:00)
== END 2025-01-09 15:45 | disposition home or self-care (01) ==
LOC: OR 09:53
PROVIDERS: ATTEND Surgery
DX: K40.90 Unilateral inguinal hernia, without obstruction or gangrene, not specified as recurrent (principal); G89.18 Other acute postprocedural pain; F41.9 Anxiety disorder, unspecified; F32.A Depression, unspecified; Z79.811 Long term (current) use of aromatase inhibitors; Z79.899 Other long term (current) drug therapy; Z85.3 Personal history of malignant neoplasm of breast; Z85.6 Personal history of leukemia; Z88.8 Allergy status to other drugs, medicaments and biological substances; Z91.048 Other nonmedicinal substance allergy status
CPT/HCPCS: 49505; 64466; 88302; C1781; J2250; J0330; J1644; J1100; J2710; J0690; J2405; J2003; J3010; J2795; J2704; J2371; J0665; J1596